=== PATIENT | female | born 1960 | race Caucasian/White ===

== ENCOUNTER 2017-06-12 07:46 | Outpatient (CLI) | payer OTHER | END 2017-06-12 20:12 | disposition home or self-care (01) | LOC: SMA 07:46 | PROVIDERS: ATTEND Family Medicine | DX: Z12.31 Encounter for screening mammogram for malignant neoplasm of breast (principal) | CPT/HCPCS: G0202 ==

== ENCOUNTER 2018-02-09 09:00 | Outpatient (CLI) | payer BC | END 2018-02-09 20:32 | disposition home or self-care (01) | LOC: SRD 09:00 | PROVIDERS: ATTEND Internal Medicine Gastroenterology | DX: Z12.11 Encounter for screening for malignant neoplasm of colon (principal) | CPT/HCPCS: 74280-TC ==

== ENCOUNTER 2019-03-13 14:28 | Outpatient (CLI) | payer BC | END 2019-03-13 21:11 | disposition home or self-care (01) | LOC: SMA 14:28 | PROVIDERS: ATTEND Physician Assistant Medical | DX: Z12.31 Encounter for screening mammogram for malignant neoplasm of breast (principal) | CPT/HCPCS: 77067 ==

== ENCOUNTER 2021-02-10 12:00 | Outpatient (CLI) | payer BC | END 2021-02-10 20:45 | disposition home or self-care (01) | LOC: SRD 12:00 | PROVIDERS: ATTEND Family Medicine | DX: Z12.31 Encounter for screening mammogram for malignant neoplasm of breast (principal) | CPT/HCPCS: 77067 ==

== ENCOUNTER 2022-10-10 10:49 | Outpatient (CLI) | payer BC | END 2022-10-10 17:58 | disposition home or self-care (01) | LOC: SMA 10:49 | PROVIDERS: ATTEND Family Medicine | DX: Z12.31 Encounter for screening mammogram for malignant neoplasm of breast (principal) | CPT/HCPCS: 77067 ==

== ENCOUNTER 2023-12-07 09:51 | Outpatient (CLI) | payer BC | END 2023-12-07 18:14 | disposition home or self-care (01) | LOC: SMA 09:51 | PROVIDERS: ATTEND Physician Assistant Medical | DX: Z12.31 Encounter for screening mammogram for malignant neoplasm of breast (principal) | CPT/HCPCS: 77067 ==